=== PATIENT | female | born 1980 | race African-American/Black ===

== ENCOUNTER 2018-11-08 12:09 | Emergency (ER) | payer MEDICAID, OTHER ==
[~2018-11-08] VITALS: Ht 162.6 cm; Wt 51.0 kg
[2018-11-08 15:00] VITALS: BP 121/64
== END 2018-11-08 15:19 | disposition home or self-care (01) ==
LOC: ER 12:16
DX: S20.229A Contusion of unspecified back wall of thorax, initial encounter (principal); D64.9 Anemia, unspecified; F12.10 Cannabis abuse, uncomplicated; F15.10 Other stimulant abuse, uncomplicated; X58.XXXA Exposure to other specified factors, initial encounter; Y93.89 Activity, other specified; Y92.89 Other specified places as the place of occurrence of the external cause; Y99.8 Other external cause status
CPT/HCPCS: 72070; 81025; 93005; 99283

== ENCOUNTER 2023-10-25 08:14 | Emergency (ER) | payer MEDICAID ==
[~2023-10-25] VITALS: Ht 165.1 cm; Wt 73.0 kg
[2023-10-25 08:17] VITALS: O2SAT 99
[2023-10-25] MEDS ORDERED: PHENYTOIN SODIUM EXTENDED 100MG CAPSULE PO ONE (09:45)
[2023-10-25 10:20] LABS: BASOPHILS % 0.6 % (0.0-2.0); DIFFERENTIAL COMMENT 0; EOSINOPHILS % 5.4 % (0.0-5.0); HEMATOCRIT. 35.5 % (36.0-48.0); HEMOGLOBIN. 11.3 g/dL (12.0-16.0); LYMPHOCYTES % 39.2 % (20.0-50.0); MEAN CORPUSCULAR HGB CONC 31.7 g/dL (31.0-37.0); MEAN CORPUSCULAR VOLUME 72.6 fL (81.0-99.0); MEAN PLATELET VOLUME 7.8 fl (7.4-10.4); MONOCYTES % 8.6 % (2.0-8.0); NEUTROPHILS % 46.2 % (40.0-76.0); PLATELET 206 x1000/uL (130-400); RED BLOOD CELL COUNT 4.89 mill/uL (4.2-5.4); RED CELL DISTRIBUTION WIDTH 16.6 % (11.6-14.6); WHITE BLOOD COUNT 5.6 x1000/uL (4.5-11.0)
[2023-10-25 11:47] LABS: ALANINE AMINOTRANSFERASE 21 IU/L (10-49); ALBUMIN 3.6 g/dL (3.2-4.8); ASPARTATE AMINOTRANSFERASE 23 IU/L (<34); BILIRUBIN TOTAL 0.3 mg/dL (0.1-1.0); CALCIUM 9.1 mg/dL (8.7-10.4); CHLORIDE 112 mEq/L (98-107); CREATININE 0.6 mg/dL (0.6-1.0); GLUCOSE 80 mg/dL (70-105); POTASSIUM 4.3 mEq/L (3.5-5.1); PROTEIN TOTAL 7.1 g/dL (6.0-8.3); SODIUM 141 mEq/L (136-145)
[2023-10-25 11:48] LABS: UREA NITROGEN BLOOD < 5 mg/dL (9-23)
[2023-10-25 13:57] VITALS: BP 135/92; PULSE 96; RESP 16; TEMP 98.2
[2023-10-25 15:18] LABS: CARBON DIOXIDE 20 mEq/L (21-32)
== END 2023-10-25 14:01 | disposition home or self-care (01) ==
LOC: ER 09:10
DX: R56.9 Unspecified convulsions (principal); Z86.59 Personal history of other mental and behavioral disorders
CPT/HCPCS: 36415; 80053; 81025; 85025; 93005; 99284